=== PATIENT | male | born 1965 | race Caucasian/White ===

== ENCOUNTER 2017-01-19 10:13 | Emergency (ER) | payer OTHER ==
[2017-01-19 10:18] VITALS: O2SAT 96
--- NOTE | 2017-01-19 10:59 | EDPHY ---
H & P Stated Complaint: Had "bright sparkly light" in R eye [employer] that has since resolved HPI/ROS: CHIEF COMPLAINT: Visual changes HISTORY OF PRESENT ILLNESS: Patient was at his desk this morning approximately an hour ago when he started noting visual changes. He describes them as shimmering sparkling changes in all [place] of view. This changed to a curvilinear line that began to approach them. This then change to the appearance of a half-matias and then resolved. This was very brief and resolved spontaneously. No headache. No visual disturbance at this time. No nausea or vomiting. No slurred speech. No confusion. No unilateral extremity complaints. No chest pain or shortness of breath. No history of high blood pressure, diabetes, coronary artery disease or stroke. No eye trauma or injury. No other associated complaints or modifying factors. REVIEW OF SYSTEMS: Ten systems reviewed and are negative unless otherwise noted in the HPI PERTINENT MEDICAL HISTORY: Astigmatism EXAMINATION General Appearance: Alert, no distress Head: normocephalic, atraumatic Eyes: Pupils equal and round, no conjunctival pallor or injection. No subconjunctival hemorrhage. No hyphema. EOMs intact. No nystagmus. ENT, Mouth: Mucous membranes moist Neck: Normal inspection, supple, non-tender Neurological: A&O, nonfocal, normal gait Skin: Warm and dry, no rash. No petechiae or purpura. No periorbital or orbital cellulitis Extremities: Nontender, no pedal edema Psychiatric: Mood and affect normal DIFFERENTIAL DIAGNOSES: Including but not limited to vitreous hemorrhage,schistosoma, amaurosis fugax, retinal detachment MDM: 10:40 a.m. Patient describes flashing sensations as well as a curvilinear visual disturbance that resolved spontaneously. He has no eye pain or headache right now. He has no visual disturbance at this time. He has normal visual marrero. I will page Ophthalmology to discuss their recommendations. 11:12 a.m. I have discussed the case with the on-call vocational instructor Dr. Lockhart. She suspect vitreous hemorrhage. She would like the patient to be seen in her office within the next 2 days. No further recommendations. I then spoke with Catherine in her office, and the patient has been confirm for at 2:00 p.m. appointment tomorrow. He will be discharged home with these instructions. He is comfortable with this plan. He is to return to the emergency department immediately for return of the symptoms. SUPERVISION: This patient was independently evaluated without direct examination by the attending physician. Case was discussed with attending physician. Case discussed with Dr. Rucker Consultations: Ophthalmology, Dr. Lockhart Source: Patient Exam Limitations: No limitations - Personal History Current Tetanus Diphtheria and Acellular Pertussis (TDAP): Unsure Constitutional: Initial Vital Signs Temperature (C) 98.4 F 01/19/17 10:15 Heart Rate 89 01/19/17 10:15 Respiratory Rate 18 01/19/17 10:15 Blood Pressure 169/87 H 01/19/17 10:15 O2 Sat (%) 96 01/19/17 10:15 O2 Delivery Mode Room Air Allergies/Adverse Reactions: No Known Allergies Allergy (Verified 01/19/17 10:14) Home Medications: Medication Instructions Recorded NK [No Known Home Meds] 01/19/17 Departure - Departure Disposition: Home, Routine, Self-Care Clinical Impression: Visual distortion Condition: Good Instructions: Visual Floaters (ED) Additional Instructions: Follow-up tomorrow 2:00 p.m. as discussed. Return to ER for return of symptoms , headache, diplopia Referrals: Ana Valencia MD [Primary Care Provider] - As per Instructions Macy Lockhart MD [Non Staff Provider (MD)] - As per Instructions Stand Alone Forms: Work Excuse
[2017-01-19 11:22] VITALS: BP 119/78; PULSE 81; RESP 19; TEMP 98.8
== END 2017-01-19 11:20 | disposition home or self-care (01) ==
DX: H53.8 Other visual disturbances (principal)

== ENCOUNTER 2018-03-29 20:12 | Emergency (ER) | payer OTHER ==
--- NOTE | 2018-03-29 20:25 | CPEKG ---
Heart Rate: 88 RR Interval: 682 P-R Interval: 148 QRSD Interval: 104 QT Interval: 368 QTC Interval: 446 P [place]: 59 QRS [place]: 95 T Wave [place]: 16 EKG Severity - OTHERWISE NORMAL ECG - EKG Impression: SINUS RHYTHM EKG Impression: BORDERLINE RIGHT AXIS DEVIATION Electronically Signed By: Tavo Perkins 29-Mar-2018 20:28:43
--- NOTE | 2018-03-29 20:28 | EDPHY ---
H & P Time Seen by Provider: 03/29/18 20:18 HPI/ROS: CHIEF COMPLAINT: Indigestion HISTORY OF PRESENT ILLNESS: The patient is a 53-year-old obese man with a history of GERD who comes to the emergency department complaining of upper abdominal indigestion and bloating. He states that it is been present for 2 days since eating a burrito at lunch. He has not had a fever. No vomiting. He has had diarrhea, nonbloody. No shortness of breath or diaphoresis. He states that he has irritable bowel and things like this happen to him frequently but his made him come in today to make sure was not his heart. He denies any heart history. He had a stress test 10 years ago that he reports was negative. REVIEW OF SYSTEMS: Constitutional: denies: chills, fever, recent illness, recent injury EENTM: denies: blurred vision, double vision, nose congestion Respiratory: denies: cough, shortness of breath Cardiac: denies: chest pain, irregular heart rate, lightheadedness, palpitations Gastrointestinal/Abdominal: See HPI Genitourinary: denies: dysuria, frequency, hematuria, pain Musculoskeletal: denies: joint pain, muscle pain Skin: denies: lesions, rash, jaundice, bruising Neurological: denies: headache, numbness, paresthesia, tingling, dizziness, weakness Hematologic/Lymphatic: denies: blood clots, easy bleeding, easy bruising Immunologic/allergic: denies: HIV/AIDS, transplant EXAM: GENERAL: Well-appearing, well-nourished and in no acute distress. HEAD: Atraumatic, normocephalic. EYES: Pupils equal round and reactive to light, extraocular movements intact, sclera anicteric, conjunctiva are normal. ENT: TMs normal, nares patent, oropharynx clear without exudates. Moist mucous membranes. NECK: Normal range of motion, supple without lymphadenopathy or JVD. LUNGS: Breath sounds clear to auscultation bilaterally and equal. No wheezes rales or rhonchi. HEART: Regular rate and rhythm without murmurs, rubs or gallops. ABDOMEN: Soft, nontender, normoactive bowel sounds. No guarding, no rebound. No masses appreciated. BACK: No CVA tenderness, no spinal tenderness, step-offs or deformities EXTREMITIES: Normal range of motion, no pitting or edema. No clubbing or cyanosis. NEUROLOGICAL: Cranial nerves II through XII grossly intact. Normal speech, normal gait. 5/5 strength, normal movement in all extremities, normal sensation PSYCH: Normal mood, normal affect. SKIN: Warm, dry, normal turgor, no visible rashes or lesions. Source: Patient, Family Exam Limitations: No limitations - Medical/Surgical History Hx Asthma: No Hx Chronic Respiratory Disease: No Hx Diabetes: No Hx Cardiac Disease: No Hx Renal Disease: No Hx Cirrhosis: No Hx Alcoholism: No Hx HIV/AIDS: No - Family History Significant Family History: No pertinent family hx - Social History Smoking Status: Never smoked Alcohol Use: Sober Constitutional: Initial Vital Signs Temperature (C) 37.1 C 03/29/18 20:29 Heart Rate 96 03/29/18 20:29 Respiratory Rate 15 03/29/18 20:29 Blood Pressure 165/105 H 03/29/18 20:29 O2 Sat (%) 95 03/29/18 20:29 O2 Delivery Mode Room Air Allergies/Adverse Reactions: No Known Allergies Allergy (Verified 01/19/17 10:14) Home Medications: Medication Instructions Recorded Omeprazole 03/29/18 Medical Decision Making - Diagnostics EKG Interpretation: An EKG obtained and was read and documented in trace view. Please see trace view for full reading and report. Sinus rhythm no acute ischemic changes Imaging Results: Imaging Impressions Chest X-Ray 03/29/18 21:24 Impression: Findings consistent with bronchitis/airways disease are noted. Imaging: I viewed and interpreted images myself (No acute disease) ED Course/Re-evaluation: The patient is comfortable. Perc score 0. He has no abdominal tenderness. 9:40 p.m. We discussed the patient's lab results. He is reassured. Negative troponin is reassuring in the setting of greater than 48 hr of symptoms. He is eager to go home. We discussed follow-up. Differential Diagnosis: Partial list of the Differential diagnosis considered include but were not limited to; diarrhea, gastritis, irritable bowel, acute coronary disease and although unlikely based on the history and physical exam, I also considered pneumonia, pneumothorax, PE, dissection, aneurysm, ischemia, volvulus, biliary disease. I discussed these differential diagnoses and the plan with the patient as well as the usual and expected course. The patient understands that the diagnosis is provisional and that in medicine we are not always correct and that further workup is often warranted. Usual and customary warnings were given. All of the patient's questions were answered. The patient was instructed to return to the emergency department should the symptoms at all worsen or return, otherwise to followup with the physician as we discussed. - Data Points Laboratory Results: 03/29/18 03/29/18 20:45 20:39 POC Sodium 143 mEq/L mEq/L (135-145) POC Potassium 3.5 mEq/L mEq/L (3.3-5.0) POC Chloride 107.0 mEq/L mEq/L (97-110) POC Total CO2 25 mEq/L mEq/L (22-31) POC BUN 20 mg/dL mg/dL (7-23) POC Creatinine 1.3 mg/dL mg/dL (0.7-1.3) POC Glucose 156 mg/dL H mg/dL (70-100) POC Calcium 9.4 mg/dL mg/dL (8.5-10.4) POC Total Bilirubin 0.5 mg/dL mg/dL (0.1-1.4) POC AST 29 IU/L IU/L (17-59) POC ALT 33 IU/L IU/L (21-72) POC Alk Phosphatase 103 IU/L IU/L (38-126) POC Troponin I 0.00 ng/mL ng/mL (0.00-0.08) POC Total Protein 7.1 g/dL g/dL (6.3-8.2) POC Albumin 3.7 g/dL g/dL (3.5-5.0) Point of Care Test Results: CBC CBC Collection Date 03/29/18 CBC Collection Time 20:32 WBC 15.6 RBC 6.18 HGB 17.4 HCT 51.9 PLT 308 Neut # 10.6 Neut 67.8 LYMPH # 3.8 LYMPH 24.3 Other WBC # 1.2 Other WBC 7.9 MCV 84.0 Chemistry 03/29/18 03/29/18 20:45 20:39 POC Sodium 143 mEq/L mEq/L (135-145) POC Potassium 3.5 mEq/L mEq/L (3.3-5.0) POC Chloride 107.0 mEq/L mEq/L (97-110) POC Total CO2 25 mEq/L mEq/L (22-31) POC BUN 20 mg/dL mg/dL (7-23) POC Creatinine 1.3 mg/dL mg/dL (0.7-1.3) POC Glucose 156 mg/dL H mg/dL (70-100) POC Calcium 9.4 mg/dL mg/dL (8.5-10.4) POC Total Bilirubin 0.5 mg/dL mg/dL (0.1-1.4) POC AST 29 IU/L IU/L (17-59) POC ALT 33 IU/L IU/L (21-72) POC Alk Phosphatase 103 IU/L IU/L (38-126) POC Troponin I 0.00 ng/mL ng/mL (0.00-0.08) POC Total Protein 7.1 g/dL g/dL (6.3-8.2) POC Albumin 3.7 g/dL g/dL (3.5-5.0) Departure - Departure Disposition: Home, Routine, Self-Care Clinical Impression: Diarrhea Qualifiers: Diarrhea type: unspecified type Qualified Code(s): R19.7 - Diarrhea, unspecified Condition: Fair Instructions: Acute Diarrhea (ED) Referrals: Ana Valencia MD [Primary Care Provider] - As per Instructions
[2018-03-29 21:54] VITALS: BP 133/99
== END 2018-03-29 21:46 | disposition home or self-care (01) ==
LOC: CED 20:12
DX: R19.7 Diarrhea, unspecified (principal)
CPT/HCPCS: 71046-PO; 80053-PO; 84484-PO

== ENCOUNTER 2019-03-01 07:58 | Emergency (ER) | payer OTHER | END 2019-03-01 09:21 | disposition home or self-care (01) ==